=== PATIENT | male | born 2000 | race African-American/Black ===

== ENCOUNTER 2022-07-17 13:12 | Observation (INO) ==
[2022-07-17] MEDS ORDERED: SODIUM CHLORIDE 0.9% 1,000 ML IV STA (13:46)
[2022-07-17] MEDS ORDERED: ONDANSETRON 4 MG/2 ML VIAL IV STA (13:46)
[2022-07-17 14:22] LABS: Basophils % 0.2 % (0.0-0.8); Hematocrit 49.2 VOL% (42.0-52.0); Hemoglobin 16.6 GM/DL (14.0-18.0); Immature Granulocytes % 0.4 %; Immature Granulocytes Absolute 0.09 #; Lymphocytes # 1.6 10*3/uL (1.4-4.0); Mean Corpuscular HGB Conc 33.7 GM/DL (32-36); Mean Corpuscular Volume 86.5 FL (87-102); Monocytes # 2.1 10*3/uL (0.11-0.8); Monocytes % 10.3 % (1.7-12.7); Neutrophils % 81.1 % (38.7-73.9); Platelet Count 278 T/CUMM (130-400); Red Blood Count 5.69 MC/CUMM (3.8-5.5); White Blood Count 20.3 T/CUMM (4-12)
[2022-07-17 14:31] LABS: Lymphocytes 9 % (20-55); Total Cells Counted 100
[2022-07-17 14:33] LABS: Platelet Estimate Adequate
[2022-07-17 14:41] LABS: Albumin 4.5 G/DL (3.4-5.0); Bilirubin,Total 0.4 MG/DL (0.20-1.00); Calcium 10.5 MG/DL (8.5-10.1); Osmolality,Calculated 282.4 MOS/KG (273-304); Potassium 3.7 MMOL/L (3.5-5.1); Total Protein 9.4 G/DL (6.4-8.2)
[2022-07-17] MEDS ORDERED: hydrALAZINE 20 MG/1 ML VIAL IV PRN (15:53)
[2022-07-17] MEDS ORDERED: ALUMINUM/MAGNES/SIMETH MAX STR 30 ML UDCUP PO PRN (15:53)
[2022-07-17] MEDS ORDERED: ACETAMINOPHEN 325 MG TABLET PO PRN (15:53)
[2022-07-17] MEDS ORDERED: PROMETHAZINE 25 MG/1 ML VIAL IM STA (16:13)
[2022-07-17] MEDS ORDERED: LEVOFLOXACIN INJ 500 MG/100 ML PREMIX IV SCH (16:30)
[2022-07-17] MEDS: LACTATED RINGERS 1,000 ML IV SCH (16:45)
[2022-07-17 18:23] LABS: Glucose,Urine (UA) Negative (Negative); Ketones,Urine 80 mg/dL (Negative); Mucus,Urine Many /LPF (Occasional); Nitrite,Urine Negative (Negative); Protein,Urine 100 mg/dL (Negative); RBC,Urine 1 /HPF (0-4); Urine Appearance Clear (Clear); Urine Color Yellow (Yellow); Urine Specific Gravity 1.025 (1.001-1.035); Urine pH 6.5 (4.5-8.0)
[2022-07-17 18:24] LABS: Bilirubin,Urine Small mg/dL (Negative); Blood, Urine Negative (Negative); Urine Urobilinogen 0.2 eU/dL (<2.0)
[2022-07-17 18:55] LABS: Barbiturates Screen,Urine Negative (Negative); Benzodiazepines Screen,Urine Negative (Negative); Cannabinoid Screen,Urine Negative (Negative); Opiate Screen,Urine Negative (Negative); Phencyclidine Screen,Urine Negative (Negative)
[2022-07-17] MEDS: PANTOPRAZOLE 40 MG VIAL IV SCH (18:55)
[2022-07-17] MEDS: metroNIDAZOLE INJ 500 MG/100 ML PREMIX IV SCH (19:00)
[2022-07-17] MEDS: DOCUSATE SODIUM 100 MG CAPSULE PO SCH (21:28)
[2022-07-17] MEDS: ONDANSETRON 4 MG/2 ML VIAL IV PRN (23:44)
[2022-07-18] MEDS: metroNIDAZOLE INJ 500 MG/100 ML PREMIX IV SCH ×2 (01:12→09:18)
[2022-07-18] MEDS: LACTATED RINGERS 1,000 ML IV SCH ×2 (01:16→12:47)
[2022-07-18] MEDS: ONDANSETRON 4 MG/2 ML VIAL IV PRN ×2 (03:51→07:43)
[2022-07-18 04:49] LABS: Basophils % 0.2 % (0.0-0.8); Hematocrit 40.1 VOL% (42.0-52.0); Hemoglobin 13.2 GM/DL (14.0-18.0); Immature Granulocytes % 0.4 %; Immature Granulocytes Absolute 0.06 #; Lymphocytes # 1.7 10*3/uL (1.4-4.0); Lymphocytes % 11.2 % (21.2-54.2); Mean Corpuscular HGB Conc 32.9 GM/DL (32-36); Mean Corpuscular Volume 87.4 FL (87-102); Mean Platelet Volume 10.1 FL (9.6-12.0); Monocytes # 1.2 10*3/uL (0.11-0.8); Monocytes % 7.9 % (1.7-12.7); Neutrophils % 80.3 % (38.7-73.9); Platelet Count 255 T/CUMM (130-400); Red Blood Count 4.59 MC/CUMM (3.8-5.5); Red Cell Distribution Width 12.6 % (9.3-17.3); White Blood Count 15.4 T/CUMM (4-12)
[2022-07-18] MEDS: MORPHINE 2 MG/1 ML SYRINGE IV PRN ×2 (05:14→09:17)
[2022-07-18 05:23] LABS: Calcium 9.4 MG/DL (8.5-10.1); Osmolality,Calculated 281.3 MOS/KG (273-304); Potassium 3.4 MMOL/L (3.5-5.1)
[2022-07-18 05:27] LABS: Albumin 3.5 G/DL (3.4-5.0); Bilirubin,Total 0.6 MG/DL (0.20-1.00); Calcium 9.8 MG/DL (8.5-10.1); Osmolality,Calculated 282.1 MOS/KG (273-304); Potassium 3.4 MMOL/L (3.5-5.1); Risk Ratio 3.92; Total Protein 7.6 G/DL (6.4-8.2); VLDL Cholesterol 20.8 MG/DL
[2022-07-18] MEDS: PANTOPRAZOLE 40 MG VIAL IV SCH (09:17)
[2022-07-18] MEDS: DOCUSATE SODIUM 100 MG CAPSULE PO SCH (09:17)
[2022-07-18 11:08] VITALS: BP 141/85
== END 2022-07-18 12:55 | disposition left against medical advice (07) ==
LOC: EDBD → EDUNIT# → N.ED 13:12 → N.EDINP 13:12 → SUATTDRO 15:53 → N.EDINP 20:32 → N.3E 21:16
PROVIDERS: ADMIT Internal Medicine; ATTEND Hospitalist